=== PATIENT | male | born 1960 | race Two or more races ===

== ENCOUNTER → 2020-03-15 | Outpatient (CLI) | payer OTHER ==
[2020-03-15 07:56] LABS: Basophils # (auto) 0.1 10 ^3/uL (0-0.2); Basophils % (auto) 1.2 % (0.0-2.0); Eosinophils # (auto) 0.4 10 ^3/uL (0-0.8); Hematocrit 45.6 % (41.0-53.0); Hemoglobin 15.4 g/dL (13.5-17.5); Lymphocytes # (auto) 1.3 10 ^3/uL (0.4-5.4); Lymphocytes % (auto) 24.2 % (10.0-50.0); Mean Corpuscular Hemoglobin 29.5 pg (28.0-32.0); Mean Corpuscular Hgb Conc. 33.7 g/dL (32.0-36.0); Mean Corpuscular Volume 87.8 fL (80.0-100.0); Monocytes # (auto) 0.5 10 ^3/uL (0-1.3); Neutrophils # (auto) 3.2 10 ^3/uL (1.6-8.6); Neutrophils % (auto) 58.6 % (37.0-80.0); Nucleated Red Blood Cells % 0.1 %; Platelet Count (auto) 245 10^3/uL (140-450); Red Cell Distribution Width 13.3 % (11.8-14.3); White Blood Cell 5.4 10^3/uL (4.4-10.8)
[2020-03-15 07:57] LABS: Urine Bacteria NONE SEEN /hpf (None Seen); Urine Blood Negative /uL (Negative); Urine Mucus FEW (None Seen); Urine Specific Gravity 1.017 (1.001-1.035); Urine Sperm PRESENT /hpf (None Seen); Urine WBC 2 /hpf (0 - 3)
[2020-03-15 08:22] LABS: Potassium 3.9 mmol/L (3.5-5.1)
[2020-03-15 08:31] LABS: Albumin 4.3 g/dL (3.4-5.0); BUN/Creatinine Ratio 19.8; Bilirubin, Total 0.6 mg/dL (0.2-1.0); CRP High Sensitivity 0.1 mg/dL (< 0.3); Calcium 9.1 mg/dL (8.5-10.1); Total Protein 7.7 g/dL (6.4-8.2)
== END | disposition home or self-care (01) ==
LOC: LAB 07:13
PROVIDERS: ATTEND Internal Medicine
DX: Z12.11 Encounter for screening for malignant neoplasm of colon (principal); N40.0 Benign prostatic hyperplasia without lower urinary tract symptoms; M25.529 Pain in unspecified elbow; M25.551 Pain in right hip
CPT/HCPCS: 36415; 80053; 80061; 81001; 84153; 84154; 84403; 84550; 85025; 85652; 86038; 86141; 86431

== ENCOUNTER 2020-03-29 15:21 | Inpatient (IN) | payer OTHER ==
[~2020-03-29] VITALS: Ht 182.9 cm; Wt 79.9 kg
--- NOTE | 2020-03-29 11:50 | NUR ---
Lights out in pt's room; pt sleeping soundly.
--- NOTE | 2020-03-29 16:15 | NUR ---
Patient escorted to unit in stable condition. Denies any pain at this time.
--- NOTE | 2020-03-29 16:20 | NUR ---
Pageele Gil NP. Per Jeffery, he will be in the hospital shortly.
[2020-03-29 16:35] VITALS: BP 117/84
[2020-03-29 17:00] VITALS: BP 117/84
[2020-03-29] MEDS ORDERED: ACETAMINOPHEN 500 MG TAB PO PRN (17:00)
[2020-03-29] MEDS ORDERED: HYDROcodone-ACET 5/325MG TAB PO PRN (17:00)
[2020-03-29] MEDS ORDERED: NITROGLYCERIN 0.4 MG SL TAB SL PRN (17:00)
[2020-03-29] MEDS ORDERED: MORPHINE SULF INJ 2 MG/ML SYRINGE 1ML IV PRN ×2 (17:00)
[2020-03-29] MEDS ORDERED: ONDANSETRON HCL 4 MG/2 ML VIAL IV PRN (17:00)
[2020-03-29 18:03] LABS: Basophils # (auto) 0 10 ^3/uL (0-0.2); Basophils % (auto) 0.6 % (0.0-2.0); Eosinophils # (auto) 0.1 10 ^3/uL (0-0.8); Eosinophils % (auto) 1.5 % (0.0-7.0); Hematocrit 46.1 % (41.0-53.0); Hemoglobin 15.8 g/dL (13.5-17.5); Lymphocytes # (auto) 1.4 10 ^3/uL (0.4-5.4); Lymphocytes % (auto) 18.9 % (10.0-50.0); Mean Corpuscular Hemoglobin 29.5 pg (28.0-32.0); Mean Corpuscular Hgb Conc. 34.2 g/dL (32.0-36.0); Mean Corpuscular Volume 86.3 fL (80.0-100.0); Monocytes # (auto) 0.6 10 ^3/uL (0-1.3); Monocytes % (auto) 7.7 % (0.0-12.0); Neutrophils # (auto) 5.2 10 ^3/uL (1.6-8.6); Neutrophils % (auto) 71.3 % (37.0-80.0); Nucleated Red Blood Cells % 0.2 %; Platelet Count (auto) 335 10^3/uL (140-450); Red Blood Cells 5.34 10^6/uL (4.5-5.90); Red Cell Distribution Width 13.3 % (11.8-14.3); White Blood Cell 7.2 10^3/uL (4.4-10.8)
[2020-03-29 18:31] LABS: INR 1.01 (0.9-1.15); Partial Thromboplastin Time 24.8 sec (23.0-31.2)
--- NOTE | 2020-03-29 19:30 | NUR ---
Opening Shift Note Assumed care of patient, awake and alert and anxious as displayed by furrowed brow and restlessness. No S/S SOB or pain. Instructed on POC and to call for assist PRN; Pt VU but stated he'd wanted to go home, not come to hospital. RN will continue to monitor for changes Q1hr and PRN. Bed in low position; call light to pt's side. Oriented completely to nurse call light control.
[2020-03-29 19:38] LABS: Anion Gap 5 (5-15); Blood Urea Nitrogen 26 mg/dL (7-18); Calcium 8.8 mg/dL (8.5-10.1); Carbon Dioxide 26 mmol/L (21-32); Chloride 108 mmol/L (98-107); Glucose 101 mg/dL (74-106); Sodium 139 mmol/L (136-145)
[2020-03-29 19:43] LABS: BUN/Creatinine Ratio 22.4; GFR African American 83 mL/min; GFR Non-African American 68 mL/min
--- NOTE | 2020-03-29 21:45 | NUR ---
Pt c/o saline lock causing him discomfort and asked if he had to keep it. This RN explained that with his heart rhythm it is best to have it already in place; if an emergency occurs, it will be much more helpful than having to stick him at that time. Pt conceded to keep it.
[2020-03-29 22:00] VITALS: BP 132/88
[2020-03-30 06:00] VITALS: BP 132/87
--- NOTE | 2020-03-30 06:55 | NUR ---
Pt awake and expressing frustration that MDs are not here yet and that he still wants to go home. States he "barely" slept, though pt slept for approx past 7 hours.
--- NOTE | 2020-03-30 07:45 | NUR ---
Patient resting comfortably in bed with no complaint of pain at this time. Patient stable.
[2020-03-30 08:15] VITALS: BP 117/85
--- NOTE | 2020-03-30 08:15 | NUR ---
Patient awake, alert, oriented x4. NSR per complex director. Lungs clear; respiration even and unlabored. Patent 20 gauge peripheral IV in right forearm. Patient denies any pain at this time. Patient stable.
[2020-03-30 09:00] VITALS: BP 117/85
[2020-03-30] MEDS: FAMOTIDINE 20 MG TAB PO SCH (09:37)
[2020-03-30] MEDS: ASPirin-EC 81 mg tab PO SCH (09:37)
--- NOTE | 2020-03-30 09:37 | NUR ---
Scheduled medications given per order. Patient resting comfortably in bed; denies pain at this time. Patient stable.
[2020-03-30] MEDS ORDERED: ASPirin 81 mg TAB PO SCH (10:00)
--- NOTE | 2020-03-30 10:05 | NUR ---
Patient resting comfortably in bed with Dr. Waddell at bedside. Patient stable.
[2020-03-30 10:52] LABS: Urine WBC None Seen /hpf (0 - 3)
[2020-03-30 11:16] LABS: Urine Bacteria NONE SEEN /hpf (None Seen); Urine Blood Negative /uL (Negative); Urine Mucus FEW (None Seen); Urine Specific Gravity 1.015 (1.001-1.035)
--- NOTE | 2020-03-30 11:35 | NUR ---
Patient stable; resting comfortably in bed with no complaint of pain at this time.
[2020-03-30 13:00] VITALS: BP 121/81
--- NOTE | 2020-03-30 13:00 | NUR ---
Patient resting comfortably in bed with no complaint of pain. Patient stable at this time.
--- NOTE | 2020-03-30 16:00 | NUR ---
Patient stable at this time. Patient resting quietly in bed.
[2020-03-30 17:00] VITALS: BP 127/76
--- NOTE | 2020-03-30 17:20 | NUR ---
Patient resting quietly in bed with Dr. Beckman at bedside. Patient stable at this time.
--- NOTE | 2020-03-30 18:24 | NUR ---
Patient medicated for nausea and 5/10 back pain. Patient resting quietly in bed at this time.
--- NOTE | 2020-03-30 19:30 | NUR ---
Received report and care of pt from day shift RN. Pt awake and sitting up in bed. Pt c/o feeling as if he has learned nothing about 'what is wrong' with him. Able to [employer] with purpose and coordination. States he had a headache "that was just throbbing, but it has dropped down to a 3 now." Pt stated, "I don't know that I want any [pain med] now." This RN instructed him to call if he changes his mind. Pt VU and agreement with plan.
[2020-03-30 22:00] VITALS: BP 130/85
[2020-03-31 05:00] VITALS: BP 131/78
--- NOTE | 2020-03-31 07:40 | NUR ---
Opening Shift Note Assumed care of patient, awake and alert. A/O X 4. No S/S of distress/SOB or pain. Instructed on POC including awaiting a cardiology consult. Instructed to call for assist PRN. Patient verbalized understanding. Bed is in lowest position and the call light is within reach of the patient. Will continue to monitor for changes Q1hr and PRN.
[2020-03-31 08:30] VITALS: BP 131/78
[2020-03-31 08:49] VITALS: BP 131/79
[2020-03-31] MEDS: ASPirin-EC 81 mg tab PO SCH (09:48)
[2020-03-31] MEDS: FAMOTIDINE 20 MG TAB PO SCH (09:48)
--- NOTE | 2020-03-31 10:15 | NUR ---
Medication refused Pepcid refused by patient due to feelings of nausea. MD made aware.
--- NOTE | 2020-03-31 10:59 | NUR ---
Dr. Sierra at bedside Dr. Sierra at bedside discussing the POC with the patient. Paged cardiology to come see the patient. D/C planning is dependent on cardiology assessment and echo results. Will continue to monitor.
[2020-03-31 11:33] VITALS: BP 131/79
[2020-03-31 13:00] VITALS: BP 128/60
--- NOTE | 2020-03-31 14:29 | NUR ---
Discharged Discharge instructions given as ordered. Encouraged to keep appointment with follow primary doctor as instructed and make an appointment with cardiology. New prescriptions given. All questions and concerns addressed. Patient verbalized understanding. Medication reconciliation form completed and copy given to patient. IV removed with catheter intact, pressure dressing applied. Telemetry unit returned to ICU. Patient walked off the unit with all personal belongings. No distress noted at time of departure.
== END 2020-03-31 14:25 | disposition home or self-care (01) | DRG 303 ==
LOC: TELE-CENTR 16:04
PROVIDERS: ADMIT Nurse Practitioner Acute Care; ATTEND Internal Medicine
DX: I25.10 Atherosclerotic heart disease of native coronary artery without angina pectoris (principal); I48.0 Paroxysmal atrial fibrillation; N40.0 Benign prostatic hyperplasia without lower urinary tract symptoms; Z80.0 Family history of malignant neoplasm of digestive organs; Z80.8 Family history of malignant neoplasm of other organs or systems; Z82.49 Family history of ischemic heart disease and other diseases of the circulatory system
CPT/HCPCS: 36415; 71045; 80048; 81001; 83735; 84443; 84484; 85025; 85379; 85610; 85730; 93005; 93306; G0378; J2405

== ENCOUNTER → 2020-06-23 | Outpatient (CLI) | payer OTHER | END | disposition home or self-care (01) | LOC: XY 08:09 | PROVIDERS: ATTEND Internal Medicine | DX: I48.0 Paroxysmal atrial fibrillation (principal) | CPT/HCPCS: 78452; 93017; A9500 ==

== ENCOUNTER → 2020-07-25 | Outpatient (CLI) | payer OTHER | END | disposition home or self-care (01) | LOC: LAB 08:22 | PROVIDERS: ATTEND Internal Medicine | DX: R97.20 Elevated prostate specific antigen [PSA] (principal) | CPT/HCPCS: 84153; 84154 ==

== ENCOUNTER → 2020-09-19 | Outpatient (CLI) | payer OTHER ==
[~2020-09-19] MED LIST: ASPI81CH59 PO; GABA300C10 PO; LATA1POW XX; METO25TA93 PO; NAPR375T27 PO; TAM04C PO; ZAFI1TAB4 PO
[2020-09-19 12:31] LABS: Basophils # (auto) 0.1 10 ^3/uL (0-0.2); Basophils % (auto) 1.2 % (0.0-2.0); Eosinophils # (auto) 0.4 10 ^3/uL (0-0.8); Eosinophils % (auto) 6.6 % (0.0-7.0); Hematocrit 42.5 % (41.0-53.0); Hemoglobin 14.5 g/dL (13.5-17.5); Lymphocytes # (auto) 1.2 10 ^3/uL (0.4-5.4); Lymphocytes % (auto) 17.8 % (10.0-50.0); Mean Corpuscular Hemoglobin 30.4 pg (28.0-32.0); Mean Corpuscular Hgb Conc. 34.2 g/dL (32.0-36.0); Mean Corpuscular Volume 88.8 fL (80.0-100.0); Monocytes # (auto) 0.6 10 ^3/uL (0-1.3); Monocytes % (auto) 8.7 % (0.0-12.0); Neutrophils # (auto) 4.3 10 ^3/uL (1.6-8.6); Neutrophils % (auto) 65.7 % (37.0-80.0); Nucleated Red Blood Cells % 0.1 %; Platelet Count (auto) 273 10^3/uL (140-450); Red Blood Cells 4.78 10^6/uL (4.5-5.90); Red Cell Distribution Width 13.2 % (11.8-14.3); White Blood Cell 6.6 10^3/uL (4.4-10.8)
[2020-09-19 12:36] LABS: Urine Bacteria NONE SEEN /hpf (None Seen); Urine Blood Negative /uL (Negative); Urine WBC <1 /hpf (0 - 3)
[2020-09-19 12:54] LABS: Albumin 3.8 g/dL (3.4-5.0); Calcium 9.2 mg/dL (8.5-10.1)
[2020-09-19 12:58] LABS: INR 0.99 (0.9-1.15); Partial Thromboplastin Time 25.2 sec (23.0-31.2)
[2020-09-19 12:59] LABS: BUN/Creatinine Ratio 21.5; Bilirubin, Total 0.3 mg/dL (0.2-1.0); Total Protein 7.7 g/dL (6.4-8.2)
== END | disposition home or self-care (01) ==
LOC: LAB 11:59
PROVIDERS: ATTEND Urology
DX: Z01.812 Encounter for preprocedural laboratory examination (principal)
CPT/HCPCS: 36415; 80053; 81001; 85025; 85610; 85730

== ENCOUNTER → 2020-09-22 | Day surgery (SDC) | payer OTHER ==
[~2020-09-22] VITALS: Ht 182.9 cm; Wt 77.1 kg
[~2020-09-22] MED LIST changes: +CIPROFLOXACIN 400MG/200ML 200 ML IV ONE; +HYDROmorphone HCL 2 MG/ML VL IV PRN; +LABETALOL HCL 5 MG/ML 4ML SYRINGE IV PRN; +LATA0.0019 LEFTEYE; +MIDAZOLAM HCL 1MG/1ML-2 ML VIAL IV PRN; +MIDAZOLAM HCL 1MG/1ML-2 ML VIAL ONE; +MORPHINE SULFATE 4 MG/ML SYR/VIAL IV PRN; +ONDANSETRON HCL 4 MG/2 ML VIAL IV PRN; +ONDANSETRON HCL 4 MG/2 ML VIAL ONE; +PROPOFOL 10 MG/ML 20 ML IV ONE; +SODIUM CHLORIDE LOCK 10 ML ONE; +ePHEDrine SULFATE 50 MG/ML AMP IV PRN; +fentaNYL CITRATE 100 MCG/2 ML VL ONE
[2020-09-22 14:41] VITALS: BP 118/75
== END | disposition home or self-care (01) ==
LOC: SUR 08:48
PROVIDERS: ATTEND Urology
DX: R97.20 Elevated prostate specific antigen [PSA] (principal); I10 Essential (primary) hypertension; J45.909 Unspecified asthma, uncomplicated; M54.30 Sciatica, unspecified side; J44.9 Chronic obstructive pulmonary disease, unspecified; F41.9 Anxiety disorder, unspecified; G89.29 Other chronic pain; Z79.899 Other long term (current) drug therapy; Z98.890 Other specified postprocedural states; Z20.822 Contact with and (suspected) exposure to COVID-19; Z82.49 Family history of ischemic heart disease and other diseases of the circulatory system; Z80.8 Family history of malignant neoplasm of other organs or systems
CPT/HCPCS: 55700; J0744; J2250; J2405; J2704; J3010; U0003

== ENCOUNTER 2020-09-27 06:52 | Inpatient (IN) | payer OTHER ==
[~2020-09-27] VITALS: Ht 182.9 cm; Wt 86.1 kg
[~2020-09-27 06:52] MED LIST changes: -CIPROFLOXACIN 400MG/200ML 200 ML IV ONE; -HYDROmorphone HCL 2 MG/ML VL IV PRN; -LABETALOL HCL 5 MG/ML 4ML SYRINGE IV PRN; -LATA0.0019 LEFTEYE; -MIDAZOLAM HCL 1MG/1ML-2 ML VIAL IV PRN; -MIDAZOLAM HCL 1MG/1ML-2 ML VIAL ONE; -MORPHINE SULFATE 4 MG/ML SYR/VIAL IV PRN; -ONDANSETRON HCL 4 MG/2 ML VIAL IV PRN; -ONDANSETRON HCL 4 MG/2 ML VIAL ONE; -PROPOFOL 10 MG/ML 20 ML IV ONE; -SODIUM CHLORIDE LOCK 10 ML ONE; -ePHEDrine SULFATE 50 MG/ML AMP IV PRN; -fentaNYL CITRATE 100 MCG/2 ML VL ONE
[2020-09-27] MEDS ORDERED: SODIUM CHLORIDE 0.9% 1,000 ML IV ONE (07:15)
[2020-09-27 07:40] LABS: Basophils # (auto) 0 10 ^3/uL (0-0.2); Basophils % (auto) 0.5 % (0.0-2.0); Eosinophils # (auto) 0.2 10 ^3/uL (0-0.8); Eosinophils % (auto) 1.6 % (0.0-7.0); Hematocrit 38.6 % (41.0-53.0); Hemoglobin 13.3 g/dL (13.5-17.5); Lymphocytes # (auto) 0.7 10 ^3/uL (0.4-5.4); Lymphocytes % (auto) 7.3 % (10.0-50.0); Mean Corpuscular Hemoglobin 30.3 pg (28.0-32.0); Mean Corpuscular Hgb Conc. 34.4 g/dL (32.0-36.0); Monocytes # (auto) 0.4 10 ^3/uL (0-1.3); Monocytes % (auto) 4.1 % (0.0-12.0); Neutrophils # (auto) 8.6 10 ^3/uL (1.6-8.6); Neutrophils % (auto) 86.5 % (37.0-80.0); Nucleated Red Blood Cells % 0.1 %; Red Blood Cells 4.38 10^6/uL (4.5-5.90); Red Cell Distribution Width 12.9 % (11.8-14.3)
[2020-09-27 07:53] LABS: INR 1.04 (0.9-1.15); Partial Thromboplastin Time 24.8 sec (23.0-31.2)
[2020-09-27 08:13] LABS: Albumin 4.1 g/dL (3.4-5.0); Anion Gap 8 (5-15); Blood Urea Nitrogen 19 mg/dL (7-18); Calcium 8.7 mg/dL (8.5-10.1); Carbon Dioxide 25 mmol/L (21-32); Chloride 105 mmol/L (98-107); Glucose 111 mg/dL (74-106); Potassium 3.8 mmol/L (3.5-5.1); Sodium 138 mmol/L (136-145)
[2020-09-27 08:18] LABS: Alanine Aminotransferase 23 U/L (16-61); Alkaline Phosphatase 52 U/L (45-117); Aspartate Aminotransferase 23 U/L (15-37); BUN/Creatinine Ratio 20.9; Bilirubin, Total 0.7 mg/dL (0.2-1.0); GFR African American 109 mL/min; GFR Non-African American 90 mL/min; Total Protein 7.6 g/dL (6.4-8.2)
[2020-09-27 08:26] LABS: Urine Bacteria NONE SEEN /hpf (None Seen); Urine Blood 3+ /uL (Negative); Urine Specific Gravity > 1.050 (1.001-1.035); Urine WBC 376 /hpf (0 - 3)
[2020-09-27] MEDS ORDERED: cefTRIAXone 1GM/50ML D5W 50 ML IV ONE (09:00)
[2020-09-27] MEDS ORDERED: HYDROcodone-ACET 5/325MG TAB PO PRN (11:30)
[2020-09-27] MEDS ORDERED: NITROGLYCERIN 0.4 MG SL TAB SL PRN (11:30)
[2020-09-27] MEDS ORDERED: MORPHINE SULFATE INJECTION 2 MG/ML SYRG IV PRN (11:30)
[2020-09-27] MEDS: SODIUM CHLORIDE 0.9% 1,000 ML IV SCH (11:36)
[2020-09-27] MEDS ORDERED: LATA0.0019 LEFTEYE (12:10)
[2020-09-27] MEDS ORDERED: LIDOCAINE HCL 2% TOP JELLY 5ML TOP ONE ×2 (13:25→13:30)
[2020-09-27 15:47] VITALS: BP 132/87
[2020-09-27 16:31] VITALS: BP 132/90
[2020-09-27] MEDS: ACETAMINOPHEN 500 MG TAB PO PRN (17:15)
[2020-09-27] MEDS: BELLADONNA ALKAL/OPIUM (16.2/30MG) RECT SUPP PR SCH (18:45)
[2020-09-27 20:00] VITALS: BP 116/76
[2020-09-27] MEDS: GABAPENTIN 300 MG CAP PO SCH (21:39)
[2020-09-27] MEDS: LATANOPROST 0.005 % OPTH(EYE) SOL 2.5ML LEFTEYE SCH (21:39)
[2020-09-27 22:37] VITALS: BP 116/76
[2020-09-28] MEDS: ACETAMINOPHEN 500 MG TAB PO PRN ×2 (01:24→23:06)
[2020-09-28] MEDS: MORPHINE SULFATE INJECTION 2 MG/ML SYRG IV PRN ×3 (01:36→19:10)
[2020-09-28] MEDS: SODIUM CHLORIDE 0.9% 1,000 ML IV SCH ×3 (03:01→17:30)
[2020-09-28 05:00] VITALS: BP 103/58
[2020-09-28 07:11] LABS: Basophils # (auto) 0 10 ^3/uL (0-0.2); Basophils % (auto) 0.7 % (0.0-2.0); Eosinophils # (auto) 0.3 10 ^3/uL (0-0.8); Eosinophils % (auto) 4.8 % (0.0-7.0); Hematocrit 27.6 % (41.0-53.0); Hemoglobin 9.8 g/dL (13.5-17.5); Lymphocytes # (auto) 1.1 10 ^3/uL (0.4-5.4); Lymphocytes % (auto) 16.5 % (10.0-50.0); Mean Corpuscular Hemoglobin 31.1 pg (28.0-32.0); Mean Corpuscular Hgb Conc. 35.6 g/dL (32.0-36.0); Mean Corpuscular Volume 87.3 fL (80.0-100.0); Monocytes # (auto) 0.5 10 ^3/uL (0-1.3); Monocytes % (auto) 7.8 % (0.0-12.0); Neutrophils # (auto) 4.9 10 ^3/uL (1.6-8.6); Neutrophils % (auto) 70.2 % (37.0-80.0); Nucleated Red Blood Cells % 0.1 %; Red Blood Cells 3.16 10^6/uL (4.5-5.90); Red Cell Distribution Width 12.8 % (11.8-14.3); White Blood Cell 6.9 10^3/uL (4.4-10.8)
[2020-09-28 07:19] LABS: Calcium 7.4 mg/dL (8.5-10.1); Potassium 3.4 mmol/L (3.5-5.1)
[2020-09-28 07:22] LABS: BUN/Creatinine Ratio 20.5
[2020-09-28 08:15] VITALS: BP 131/81
[2020-09-28 09:00] VITALS: BP 131/81
[2020-09-28] MEDS: cefTRIAXone 1GM/50ML D5W 50 ML IV SCH (09:27)
[2020-09-28] MEDS: METOPROLOL SUCCINATE XL 50 MG TAB PO SCH (10:00)
[2020-09-28] MEDS ORDERED: PATIENTS OWN MEDICATION (Metoprolol Succinate (Metoprolol Succinate Er) 1 TAB) PO SCH (10:00)
[2020-09-28] MEDS: FAMOTIDINE 20 MG TAB PO SCH (10:00)
[2020-09-28] MEDS: BELLADONNA ALKAL/OPIUM (16.2/30MG) RECT SUPP PR SCH ×2 (10:00→22:02)
[2020-09-28] MEDS: ZAFIRLUKAST 10 MG PO SCH (10:00)
[2020-09-28] MEDS: GABAPENTIN 300 MG CAP PO SCH ×2 (10:00→22:01)
[2020-09-28] MEDS ORDERED: KETOROLAC TROMETH 30 MG/ML 1ML VIAL IV ONE (10:15)
[2020-09-28] MEDS ORDERED: HYDROmorphone HCL 2 MG/ML VL IV STA (10:15)
[2020-09-28] MEDS ORDERED: HYDROmorphone HCL 2 MG/ML VL ONE ×2 (10:21→10:59)
[2020-09-28] MEDS ORDERED: LIDOCAINE 2% JELLY 11ml (GLYDO) ONE ×2 (10:40→16:07)
[2020-09-28] MEDS ORDERED: HYDROmorphone HCL 2 MG/ML VL IV ONE (11:00)
[2020-09-28] MEDS ORDERED: SUCCINYLCHOLINE CHLORIDE 20 MG/ML 10ML VIAL IV ONE (12:48)
[2020-09-28] MEDS ORDERED: ROCURONIUM 10MG/ML 10ML VIAL IV ONE (12:48)
[2020-09-28 12:56] VITALS: BP 108/67
[2020-09-28] MEDS ORDERED: CIPROFLOXACIN 400MG/200ML 200 ML IV ONE (14:51)
[2020-09-28] MEDS ORDERED: MIDAZOLAM HCL 2MG/2ML 2ml VIAL (1mg/ml) ONE (16:18)
[2020-09-28] MEDS ORDERED: fentaNYL CITRATE 100 MCG/2 ML VL ONE (16:18)
[2020-09-28] MEDS ORDERED: PROPOFOL 10 MG/ML 20 ML IV ONE (16:19)
[2020-09-28] MEDS ORDERED: ONDANSETRON HCL 4 MG/2 ML VIAL ONE (16:19)
[2020-09-28] MEDS ORDERED: LIDOCAINE 2% (LOCAL ANESTH.) PF 5ml SDV ONE (16:19)
[2020-09-28] MEDS ORDERED: PHENYLEPHRINE HCL 10 MG/ML VL ONE (17:46)
[2020-09-28] MEDS ORDERED: ONDANSETRON HCL 4 MG/2 ML VIAL IV PRN (18:15)
[2020-09-28] MEDS: HYDROmorphone HCL 2 MG/ML VL IV PRN ×3 (18:38→18:58)
[2020-09-28] MEDS ORDERED: MORPHINE SULFATE 4 MG/ML SYR/VIAL ONE (19:10)
[2020-09-28 20:00] VITALS: BP 117/74
[2020-09-28 21:18] LABS: Basophils # (auto) 0.1 10 ^3/uL (0-0.2); Basophils % (auto) 0.5 % (0.0-2.0); Eosinophils # (auto) 0 10 ^3/uL (0-0.8); Eosinophils % (auto) 0.2 % (0.0-7.0); Hemoglobin 9.9 g/dL (13.5-17.5); Lymphocytes % (auto) 5.4 % (10.0-50.0); Mean Corpuscular Hemoglobin 29.4 pg (28.0-32.0); Mean Corpuscular Volume 88.9 fL (80.0-100.0); Monocytes # (auto) 1.2 10 ^3/uL (0-1.3); Monocytes % (auto) 6.7 % (0.0-12.0); Neutrophils # (auto) 16.1 10 ^3/uL (1.6-8.6); Neutrophils % (auto) 87.2 % (37.0-80.0); Nucleated Red Blood Cells % 0.1 %; Red Blood Cells 3.38 10^6/uL (4.5-5.90); Red Cell Distribution Width 13.4 % (11.8-14.3); White Blood Cell 18.5 10^3/uL (4.4-10.8)
[2020-09-28 21:47] VITALS: BP 117/74
[2020-09-28] MEDS: LATANOPROST 0.005 % OPTH(EYE) SOL 2.5ML LEFTEYE SCH (22:01)
[2020-09-29] MEDS ORDERED: SIMETHICONE 80 MG CHEWABLE TABLET PO ONE (03:15)
[2020-09-29] MEDS: MORPHINE SULFATE INJECTION 2 MG/ML SYRG IV PRN (03:56)
[2020-09-29] MEDS: SODIUM CHLORIDE 0.9% 1,000 ML IV SCH ×2 (03:58→16:37)
[2020-09-29 05:20] VITALS: BP 136/57
[2020-09-29 06:42] LABS: Basophils # (auto) 0 10 ^3/uL (0-0.2); Basophils % (auto) 0.2 % (0.0-2.0); Eosinophils # (auto) 0 10 ^3/uL (0-0.8); Eosinophils % (auto) 0.3 % (0.0-7.0); Hematocrit 27.4 % (41.0-53.0); Hemoglobin 9.4 g/dL (13.5-17.5); Lymphocytes % (auto) 6.3 % (10.0-50.0); Mean Corpuscular Hgb Conc. 34.3 g/dL (32.0-36.0); Mean Corpuscular Volume 87.5 fL (80.0-100.0); Monocytes # (auto) 0.9 10 ^3/uL (0-1.3); Monocytes % (auto) 6.1 % (0.0-12.0); Neutrophils # (auto) 13.3 10 ^3/uL (1.6-8.6); Neutrophils % (auto) 87.1 % (37.0-80.0); Red Blood Cells 3.13 10^6/uL (4.5-5.90); Red Cell Distribution Width 12.7 % (11.8-14.3); White Blood Cell 15.3 10^3/uL (4.4-10.8)
[2020-09-29 06:57] LABS: Albumin 2.9 g/dL (3.4-5.0); Potassium 3.7 mmol/L (3.5-5.1)
[2020-09-29 07:02] LABS: BUN/Creatinine Ratio 28.9; Bilirubin, Total 0.9 mg/dL (0.2-1.0); Total Protein 5.7 g/dL (6.4-8.2)
[2020-09-29] MEDS: cefTRIAXone 1GM/50ML D5W 50 ML IV SCH (08:23)
[2020-09-29 09:00] VITALS: BP 133/77
[2020-09-29] MEDS ORDERED: ONDANSETRON HCL 4 MG/2 ML VIAL IV PRN (09:30)
[2020-09-29] MEDS: ZAFIRLUKAST 10 MG PO SCH (10:00)
[2020-09-29] MEDS: KETOROLAC TROMETH 30 MG/ML 1ML VIAL IV PRN ×2 (10:05→17:56)
[2020-09-29] MEDS: METOPROLOL SUCCINATE XL 50 MG TAB PO SCH (10:06)
[2020-09-29] MEDS: BELLADONNA ALKAL/OPIUM (16.2/30MG) RECT SUPP PR SCH ×2 (10:06→22:00)
[2020-09-29] MEDS: GABAPENTIN 300 MG CAP PO SCH ×2 (10:06→21:50)
[2020-09-29] MEDS: FAMOTIDINE 20 MG TAB PO SCH (10:06)
[2020-09-29 13:00] VITALS: BP 114/75
[2020-09-29 16:56] VITALS: BP 109/68
[2020-09-29] MEDS ORDERED: LACTULOSE 20Gm/30ML SOLN PO PRN (19:45)
[2020-09-29 22:00] VITALS: BP 119/70
[2020-09-29] MEDS: LATANOPROST 0.005 % OPTH(EYE) SOL 2.5ML LEFTEYE SCH (22:00)
[2020-09-30] MEDS: KETOROLAC TROMETH 30 MG/ML 1ML VIAL IV PRN (00:28)
[2020-09-30] MEDS: SODIUM CHLORIDE 0.9% 1,000 ML IV SCH (01:28)
[2020-09-30 05:16] VITALS: BP 117/70
[2020-09-30 07:04] LABS: Eosinophils # (auto) 0.6 10 ^3/uL (0-0.8); Hemoglobin 7.7 g/dL (13.5-17.5); Neutrophils # (auto) 9.2 10 ^3/uL (1.6-8.6); Red Cell Distribution Width 12.9 % (11.8-14.3); White Blood Cell 11.6 10^3/uL (4.4-10.8)
[2020-09-30 07:07] LABS: Basophils # (auto) 0 10 ^3/uL (0-0.2); Basophils % (auto) 0.2 % (0.0-2.0); Eosinophils % (auto) 5.2 % (0.0-7.0); Hematocrit 21.9 % (41.0-53.0); Lymphocytes # (auto) 0.9 10 ^3/uL (0.4-5.4); Lymphocytes % (auto) 7.4 % (10.0-50.0); Mean Corpuscular Hemoglobin 30.6 pg (28.0-32.0); Mean Corpuscular Hgb Conc. 35.3 g/dL (32.0-36.0); Mean Corpuscular Volume 86.8 fL (80.0-100.0); Monocytes # (auto) 0.9 10 ^3/uL (0-1.3); Neutrophils % (auto) 79.2 % (37.0-80.0); Red Blood Cells 2.52 10^6/uL (4.5-5.90)
[2020-09-30 07:09] LABS: Albumin 2.6 g/dL (3.4-5.0); Calcium 7.2 mg/dL (8.5-10.1); Potassium 3.5 mmol/L (3.5-5.1)
[2020-09-30 07:16] LABS: BUN/Creatinine Ratio 13.4; Bilirubin, Total 0.6 mg/dL (0.2-1.0); Total Protein 5.3 g/dL (6.4-8.2)
[2020-09-30 09:01] VITALS: BP 123/68
[2020-09-30] MEDS: cefTRIAXone 1GM/50ML D5W 50 ML IV SCH (09:05)
[2020-09-30] MEDS: FAMOTIDINE 20 MG TAB PO SCH (09:50)
[2020-09-30] MEDS: ZAFIRLUKAST 10 MG PO SCH (09:50)
[2020-09-30] MEDS: GABAPENTIN 300 MG CAP PO SCH ×2 (09:51→21:25)
[2020-09-30] MEDS: METOPROLOL SUCCINATE XL 50 MG TAB PO SCH (09:51)
[2020-09-30] MEDS: BELLADONNA ALKAL/OPIUM (16.2/30MG) RECT SUPP PR SCH ×2 (10:00→21:25)
[2020-09-30] MEDS ORDERED: TAMSULOSIN HYDROCHLORIDE 0.4 MG CAP PO ONE (11:15)
[2020-09-30 13:00] VITALS: BP 116/72
[2020-09-30 17:00] VITALS: BP 107/67
[2020-09-30] MEDS ORDERED: TAMSULOSIN HYDROCHLORIDE 0.4 MG CAP PO SCH (18:00)
[2020-09-30] MEDS: LATANOPROST 0.005 % OPTH(EYE) SOL 2.5ML LEFTEYE SCH (21:25)
[2020-09-30 22:00] VITALS: BP 111/74
[2020-10-01 05:21] LABS: Basophils # (auto) 0 10 ^3/uL (0-0.2); Eosinophils # (auto) 0.3 10 ^3/uL (0-0.8); Hemoglobin 8.1 g/dL (13.5-17.5); Monocytes # (auto) 0.9 10 ^3/uL (0-1.3); Neutrophils % (auto) 71.9 % (37.0-80.0); Nucleated Red Blood Cells % 0.1 %; White Blood Cell 9.4 10^3/uL (4.4-10.8)
[2020-10-01 05:22] LABS: Basophils % (auto) 0.4 % (0.0-2.0); Eosinophils % (auto) 3.2 % (0.0-7.0); Hematocrit 22.8 % (41.0-53.0); Lymphocytes # (auto) 1.4 10 ^3/uL (0.4-5.4); Lymphocytes % (auto) 15.2 % (10.0-50.0); Mean Corpuscular Hemoglobin 30.6 pg (28.0-32.0); Mean Corpuscular Hgb Conc. 35.5 g/dL (32.0-36.0); Mean Corpuscular Volume 86.1 fL (80.0-100.0); Monocytes % (auto) 9.3 % (0.0-12.0); Neutrophils # (auto) 6.7 10 ^3/uL (1.6-8.6); Red Blood Cells 2.65 10^6/uL (4.5-5.90); Red Cell Distribution Width 13.2 % (11.8-14.3)
[2020-10-01 05:25] VITALS: BP 107/67
[2020-10-01 05:38] LABS: Albumin 2.8 g/dL (3.4-5.0); Calcium 7.7 mg/dL (8.5-10.1); Potassium 3.5 mmol/L (3.5-5.1)
[2020-10-01 05:43] LABS: BUN/Creatinine Ratio 8.9; Bilirubin, Total 0.5 mg/dL (0.2-1.0)
[2020-10-01 09:00] VITALS: BP 112/74
[2020-10-01] MEDS: cefTRIAXone 1GM/50ML D5W 50 ML IV SCH (09:57)
[2020-10-01 10:22] VITALS: BP 107/67
[2020-10-01 13:00] VITALS: BP 111/67
[2021-02-06] MEDS ORDERED: FINA5TAB4 PO (15:54)
== END 2020-10-01 12:37 | disposition home or self-care (01) | DRG 713 ==
LOC: ER 06:52 → TELE 11:22 → TELE-EAST 14:15
PROVIDERS: ADMIT Nurse Practitioner Acute Care; ATTEND Family Medicine
PROC: 0TCB8ZZ Extirpation of Matter from Bladder, Via Natural or Artificial Opening Endoscopic (ICD-10-PCS; 2020-09-28)
PROC: 0V508ZZ Destruction of Prostate, Via Natural or Artificial Opening Endoscopic (ICD-10-PCS; principal; 2020-09-28 16:14)
DX: N40.1 Benign prostatic hyperplasia with lower urinary tract symptoms (principal); D62 Acute posthemorrhagic anemia; N13.8 Other obstructive and reflux uropathy; N39.0 Urinary tract infection, site not specified; N17.9 Acute kidney failure, unspecified; E87.1 Hypo-osmolality and hyponatremia; Z20.822 Contact with and (suspected) exposure to COVID-19; I10 Essential (primary) hypertension; R31.0 Gross hematuria; I48.0 Paroxysmal atrial fibrillation; J45.909 Unspecified asthma, uncomplicated; R33.8 Other retention of urine; N32.89 Other specified disorders of bladder; Z79.82 Long term (current) use of aspirin; Z80.8 Family history of malignant neoplasm of other organs or systems; Z82.49 Family history of ischemic heart disease and other diseases of the circulatory system; Z85.819 Personal history of malignant neoplasm of unspecified site of lip, oral cavity, and pharynx; Z87.891 Personal history of nicotine dependence; Z79.899 Other long term (current) drug therapy
CPT/HCPCS: 36415; 51702; 71045; 74176; 80048; 80053; 81001; 84484; 85025; 85610; 85730; 86850; 86900; 86901; 86920; 87086; 87426; 93005; 96361; 96365; G0378; J0330; J0696; J1885; J2001; J2250; J2405; J2704

== ENCOUNTER → 2020-10-21 | Outpatient (CLI) | payer OTHER ==
[~2020-10-21] MED LIST changes: +LATA0.0019 LEFTEYE; -LATA1POW XX
[2020-10-21 15:05] LABS: Basophils # (auto) 0.1 10 ^3/uL (0-0.2); Basophils % (auto) 2.1 % (0.0-2.0); Eosinophils # (auto) 0.4 10 ^3/uL (0-0.8); Eosinophils % (auto) 8.6 % (0.0-7.0); Hematocrit 30.8 % (41.0-53.0); Hemoglobin 10.5 g/dL (13.5-17.5); Lymphocytes # (auto) 1.1 10 ^3/uL (0.4-5.4); Lymphocytes % (auto) 23.7 % (10.0-50.0); Mean Corpuscular Hemoglobin 29.6 pg (28.0-32.0); Mean Corpuscular Hgb Conc. 34.2 g/dL (32.0-36.0); Mean Corpuscular Volume 86.4 fL (80.0-100.0); Monocytes # (auto) 0.5 10 ^3/uL (0-1.3); Monocytes % (auto) 9.7 % (0.0-12.0); Neutrophils # (auto) 2.7 10 ^3/uL (1.6-8.6); Neutrophils % (auto) 55.9 % (37.0-80.0); Platelet Count (auto) 348 10^3/uL (140-450); Red Blood Cells 3.56 10^6/uL (4.5-5.90); Red Cell Distribution Width 13.8 % (11.8-14.3); White Blood Cell 4.8 10^3/uL (4.4-10.8)
[2020-10-21 15:39] LABS: Albumin 3.7 g/dL (3.4-5.0); BUN/Creatinine Ratio 18.5; Calcium 8.8 mg/dL (8.5-10.1); Potassium 3.9 mmol/L (3.5-5.1)
[2020-10-21 15:42] LABS: Bilirubin, Total 0.2 mg/dL (0.2-1.0); Total Protein 7.3 g/dL (6.4-8.2)
== END | disposition home or self-care (01) ==
LOC: LAB 14:51
PROVIDERS: ATTEND Internal Medicine
DX: R10.12 Left upper quadrant pain (principal)
CPT/HCPCS: 36415; 80053; 82150; 83690; 85025

== ENCOUNTER → 2020-11-08 | Outpatient (CLI) | payer OTHER | END | disposition home or self-care (01) | LOC: LAB 08:30 | PROVIDERS: ATTEND Internal Medicine | DX: R10.2 Pelvic and perineal pain (principal) | CPT/HCPCS: 36415; 82565; 84520 ==

== ENCOUNTER → 2020-12-07 | Outpatient (CLI) | payer OTHER ==
[2020-12-07 08:20] LABS: Basophils # (auto) 0.1 10 ^3/uL (0-0.2); Basophils % (auto) 1.5 % (0.0-2.0); Eosinophils # (auto) 0.4 10 ^3/uL (0-0.8); Eosinophils % (auto) 9.5 % (0.0-7.0); Hemoglobin 12.6 g/dL (13.5-17.5); Lymphocytes # (auto) 1.2 10 ^3/uL (0.4-5.4); Lymphocytes % (auto) 30.8 % (10.0-50.0); Mean Corpuscular Hemoglobin 27.4 pg (28.0-32.0); Mean Corpuscular Hgb Conc. 33.2 g/dL (32.0-36.0); Mean Corpuscular Volume 82.5 fL (80.0-100.0); Monocytes # (auto) 0.4 10 ^3/uL (0-1.3); Monocytes % (auto) 10.4 % (0.0-12.0); Neutrophils # (auto) 1.9 10 ^3/uL (1.6-8.6); Neutrophils % (auto) 47.8 % (37.0-80.0); Red Cell Distribution Width 15.8 % (11.8-14.3)
[2020-12-07 08:38] LABS: Urine Bacteria NONE SEEN /hpf (None Seen); Urine Blood Negative /uL (Negative); Urine Specific Gravity 1.013 (1.001-1.035); Urine Sperm PRESENT /hpf (None Seen); Urine WBC 17 /hpf (0 - 3)
== END | disposition home or self-care (01) ==
LOC: LAB 07:45
PROVIDERS: ATTEND Internal Medicine
DX: R97.20 Elevated prostate specific antigen [PSA] (principal); D64.9 Anemia, unspecified; R31.0 Gross hematuria
CPT/HCPCS: 36415; 81001; 84153; 85025

== ENCOUNTER 2021-02-08 06:08 | Day surgery (SDC) | payer OTHER ==
[2021-02-06 10:29] LABS: Basophils # (auto) 0.1 10 ^3/uL (0-0.2); Basophils % (auto) 1.4 % (0.0-2.0); Eosinophils # (auto) 0.3 10 ^3/uL (0-0.8); Eosinophils % (auto) 5.6 % (0.0-7.0); Hematocrit 42.8 % (41.0-53.0); Hemoglobin 14.4 g/dL (13.5-17.5); Lymphocytes # (auto) 1.1 10 ^3/uL (0.4-5.4); Lymphocytes % (auto) 22.2 % (10.0-50.0); Mean Corpuscular Hemoglobin 27.4 pg (28.0-32.0); Mean Corpuscular Hgb Conc. 33.6 g/dL (32.0-36.0); Mean Corpuscular Volume 81.5 fL (80.0-100.0); Monocytes # (auto) 0.4 10 ^3/uL (0-1.3); Monocytes % (auto) 8.6 % (0.0-12.0); Neutrophils # (auto) 3.2 10 ^3/uL (1.6-8.6); Neutrophils % (auto) 62.2 % (37.0-80.0); Nucleated Red Blood Cells % 0.1 %; Red Blood Cells 5.25 10^6/uL (4.5-5.90); Red Cell Distribution Width 18.3 % (11.8-14.3); White Blood Cell 5.1 10^3/uL (4.4-10.8)
[2021-02-06 10:35] LABS: Urine Bacteria NONE SEEN /hpf (None Seen); Urine Blood Negative /uL (Negative); Urine Specific Gravity 1.019 (1.001-1.035); Urine WBC 1 /hpf (0 - 3)
[2021-02-06 10:53] LABS: Albumin 3.6 g/dL (3.4-5.0); Calcium 8.6 mg/dL (8.5-10.1); Potassium 4.1 mmol/L (3.5-5.1)
[2021-02-06 10:55] LABS: BUN/Creatinine Ratio 19.2; Bilirubin, Total 0.5 mg/dL (0.2-1.0); Total Protein 7.5 g/dL (6.4-8.2)
[~2021-02-08] VITALS: Ht 182.9 cm; Wt 79.4 kg
[~2021-02-08 06:08] MED LIST changes: +FINA5TAB4 PO; -GABA300C10 PO; -NAPR375T27 PO
[2021-02-08] MEDS ORDERED: ceFAZolin 1GM/50ML 100 ML IV ONE (07:18)
[2021-02-08] MEDS ORDERED: MIDAZOLAM HCL 2MG/2ML 2ml VIAL (1mg/ml) ONE (07:41)
[2021-02-08] MEDS ORDERED: fentaNYL CITRATE 100 MCG/2 ML VL ONE (07:41)
[2021-02-08] MEDS ORDERED: MEPERIDINE HCL (50 MG/ML) 1 ML VIAL ONE (07:41)
[2021-02-08] MEDS ORDERED: BUPIVACAINE W/ EPINEPH 0.25% INJ 50ML MDV ONE (07:46)
[2021-02-08] MEDS ORDERED: DexAMETHasone SOD PHOS 10MG/1ML VIAL INJ ONE (08:16)
[2021-02-08] MEDS ORDERED: PROPOFOL 10 MG/ML 20 ML IV ONE (08:16)
[2021-02-08] MEDS ORDERED: LABETALOL HCL 5 MG/ML 4ML SYRINGE IV PRN (08:30)
[2021-02-08] MEDS ORDERED: HYDROmorphone HCL 2 MG/ML VL IV PRN (08:30)
[2021-02-08] MEDS ORDERED: MORPHINE SULFATE 4 MG/ML SYR/VIAL IV PRN (08:30)
[2021-02-08] MEDS ORDERED: hydrALAZINE HCL 20 MG/ML VL IV PRN (08:30)
[2021-02-08] MEDS ORDERED: ONDANSETRON HCL 4 MG/2 ML VIAL IV PRN (08:30)
[2021-02-08] MEDS ORDERED: ePHEDrine SULFATE 50 MG/ML AMP IV PRN (08:30)
[2021-02-08] MEDS ORDERED: MIDAZOLAM HCL 2MG/2ML 2ml VIAL (1mg/ml) IV PRN (08:30)
[2021-02-08 10:25] VITALS: BP 112/68
== END 2021-02-08 10:30 | disposition home or self-care (01) ==
LOC: SUR 06:08
PROVIDERS: ATTEND Surgery
DX: K42.9 Umbilical hernia without obstruction or gangrene (principal); I10 Essential (primary) hypertension; J44.9 Chronic obstructive pulmonary disease, unspecified; Z98.890 Other specified postprocedural states; Z79.899 Other long term (current) drug therapy; Z20.822 Contact with and (suspected) exposure to COVID-19
CPT/HCPCS: 36415; 49585; 80053; 81001; 85025; J0690; J1100; J2175; J2250; J2704; J3010; Q4140; U0003

== ENCOUNTER → 2021-09-13 | Outpatient (CLI) | payer OTHER ==
[2021-09-13 09:21] LABS: Cholesterol 182 mg/dL (< 200); HDL Cholesterol 45 mg/dL (40-59); LDL Cholesterol 118 mg/dL (< 100); Triglycerides 127 mg/dL (< 150)
== END | disposition home or self-care (01) ==
LOC: LAB 08:07
PROVIDERS: ATTEND Internal Medicine
DX: E78.5 Hyperlipidemia, unspecified (principal)
CPT/HCPCS: 36415; 80061

== ENCOUNTER → 2021-10-05 | Outpatient (CLI) | payer OTHER | END | disposition home or self-care (01) | LOC: LAB 08:17 | PROVIDERS: ATTEND Internal Medicine | DX: N40.0 Benign prostatic hyperplasia without lower urinary tract symptoms (principal) | CPT/HCPCS: 84153 ==

== ENCOUNTER → 2022-01-04 | Outpatient (CLI) | payer OTHER ==
[2022-01-04 08:17] LABS: Folate (Folic Acid) 13.9 ng/mL (5.38-24)
[2022-01-05 06:06] LABS: RPR Non Reactive (Non Reactive)
== END | disposition home or self-care (01) ==
LOC: LAB 07:02
PROVIDERS: ATTEND Internal Medicine
DX: R10.13 Epigastric pain (principal)
CPT/HCPCS: 36415; 82607; 82746; 84443; 86592

== ENCOUNTER → 2022-04-02 | Outpatient (CLI) | payer OTHER ==
[2022-04-02 07:40] LABS: Basophils # (auto) 0.1 10 ^3/uL (0-0.2); Basophils % (auto) 1.4 % (0.0-2.0); Eosinophils # (auto) 0.6 10 ^3/uL (0-0.8); Eosinophils % (auto) 10.8 % (0.0-7.0); Hematocrit 42.7 % (41.0-53.0); Hemoglobin 14.9 g/dL (13.5-17.5); Lymphocytes # (auto) 1.6 10 ^3/uL (0.4-5.4); Lymphocytes % (auto) 28.8 % (10.0-50.0); Mean Corpuscular Hemoglobin 29.9 pg (28.0-32.0); Mean Corpuscular Hgb Conc. 34.9 g/dL (32.0-36.0); Mean Corpuscular Volume 85.6 fL (80.0-100.0); Monocytes # (auto) 0.5 10 ^3/uL (0-1.3); Monocytes % (auto) 9.6 % (0.0-12.0); Neutrophils # (auto) 2.7 10 ^3/uL (1.6-8.6); Neutrophils % (auto) 49.4 % (37.0-80.0); Red Blood Cells 4.99 10^6/uL (4.5-5.90); Red Cell Distribution Width 13.1 % (11.8-14.3); White Blood Cell 5.5 10^3/uL (4.4-10.8)
[2022-04-02 08:25] LABS: Albumin 3.7 g/dL (3.4-5.0); BUN/Creatinine Ratio 19.4; Calcium 9.1 mg/dL (8.5-10.1); Potassium 4.1 mmol/L (3.5-5.1); Total Protein 7.4 g/dL (6.4-8.2)
[2022-04-02 08:29] LABS: Bilirubin, Total 0.8 mg/dL (0.2-1.0)
== END | disposition home or self-care (01) ==
LOC: LAB 06:59
PROVIDERS: ATTEND Internal Medicine
DX: Z12.11 Encounter for screening for malignant neoplasm of colon (principal); I10 Essential (primary) hypertension; I48.0 Paroxysmal atrial fibrillation
CPT/HCPCS: 36415; 80053; 80061; 85025

== ENCOUNTER → 2022-09-10 | Outpatient (CLI) | payer OTHER ==
[2022-09-10 12:30] LABS: Urine Bacteria NONE SEEN /hpf (None Seen); Urine Blood Negative /uL (Negative); Urine Specific Gravity 1.009 (1.001-1.035); Urine WBC <1 /hpf (0 - 3)
== END | disposition home or self-care (01) ==
LOC: LAB 10:49
PROVIDERS: ATTEND Internal Medicine
DX: N40.0 Benign prostatic hyperplasia without lower urinary tract symptoms (principal); R31.9 Hematuria, unspecified
CPT/HCPCS: 81001; 84153

== ENCOUNTER → 2022-12-03 | Outpatient (CLI) | payer OTHER ==
[~2022-12-03] MED LIST changes: -LATA0.0019 LEFTEYE; +LATA0.008 LEFTEYE; -TAM04C PO; +TAMS-35 PO
[2022-12-03 07:45] LABS: Cholesterol 173 mg/dL (< 200); HDL Cholesterol 50 mg/dL (40-59); LDL Cholesterol 108 mg/dL (< 100); Triglycerides 86 mg/dL (< 150)
== END | disposition home or self-care (01) ==
LOC: LAB 06:30
PROVIDERS: ATTEND Internal Medicine
DX: E78.5 Hyperlipidemia, unspecified (principal)
CPT/HCPCS: 36415; 80061

== ENCOUNTER → 2023-01-02 | Outpatient (CLI) | payer OTHER | END | disposition home or self-care (01) | LOC: LAB 06:29 | PROVIDERS: ATTEND Internal Medicine | DX: R22.1 Localized swelling, mass and lump, neck (principal) | CPT/HCPCS: 36415; 82565; 84520 ==

== ENCOUNTER → 2023-01-31 | Outpatient (CLI) | payer OTHER ==
[2023-01-31 07:45] LABS: Basophils # (auto) 0.1 10 ^3/uL (0-0.2); Basophils % (auto) 1.1 % (0.0-2.0); Eosinophils # (auto) 0.4 10 ^3/uL (0-0.8); Eosinophils % (auto) 8.5 % (0.0-7.0); Hematocrit 41.4 % (41.0-53.0); Hemoglobin 14.2 g/dL (13.5-17.5); Lymphocytes # (auto) 1.4 10 ^3/uL (0.4-5.4); Lymphocytes % (auto) 30.4 % (10.0-50.0); Mean Corpuscular Hemoglobin 29.3 pg (28.0-32.0); Mean Corpuscular Hgb Conc. 34.2 g/dL (32.0-36.0); Mean Corpuscular Volume 85.7 fL (80.0-100.0); Monocytes # (auto) 0.5 10 ^3/uL (0-1.3); Neutrophils # (auto) 2.3 10 ^3/uL (1.6-8.6); Red Blood Cells 4.83 10^6/uL (4.5-5.90); Red Cell Distribution Width 13.4 % (11.8-14.3); White Blood Cell 4.6 10^3/uL (4.4-10.8)
[2023-01-31 07:48] LABS: Alanine Aminotransferase 24 U/L (7-40); Albumin 4.3 g/dL (3.2-4.8); Alkaline Phosphatase 38 U/L (46-116); Anion Gap 6.9 (5-15); Aspartate Aminotransferase 22 U/L (13-40); BUN/Creatinine Ratio 13.7 (10.0-20.0); Blood Urea Nitrogen 13 mg/dL (9-23); Calcium 9.3 mg/dL (8.5-10.1); Carbon Dioxide 26.1 mmol/L (20-30); Chloride 107 mmol/L (98-107); Glucose 109 mg/dL (74-106); Potassium 3.7 mmol/L (3.5-5.1); Sodium 140 mmol/L (136-145); Uric Acid 4.2 mg/dL (3.7-9.2)
[2023-01-31 07:50] LABS: Bilirubin, Total 0.7 mg/dL (0.2-1.0); Total Protein 6.9 g/dL (5.7-8.2)
[2023-01-31 08:13] LABS: Erythrocyte Sedimentation Rate 4 mm/hr (0-20)
== END | disposition home or self-care (01) ==
LOC: LAB 06:08
PROVIDERS: ATTEND Internal Medicine
DX: E78.5 Hyperlipidemia, unspecified (principal); R10.32 Left lower quadrant pain; N40.0 Benign prostatic hyperplasia without lower urinary tract symptoms
CPT/HCPCS: 36415; 80053; 82270; 84550; 85025; 85652

== ENCOUNTER → 2023-03-20 | Outpatient (CLI) | payer OTHER ==
[2023-03-20 07:52] LABS: Erythrocyte Sedimentation Rate 8 mm/hr (0-20)
== END | disposition home or self-care (01) ==
LOC: LAB 06:34
PROVIDERS: ATTEND Internal Medicine
DX: R22.1 Localized swelling, mass and lump, neck (principal); M54.2 Cervicalgia
CPT/HCPCS: 36415; 83036; 85652; 86141

== ENCOUNTER → 2023-04-05 | Outpatient (CLI) | payer OTHER | END | disposition home or self-care (01) | LOC: LAB 06:37 | PROVIDERS: ATTEND Internal Medicine | DX: R10.32 Left lower quadrant pain (principal) | CPT/HCPCS: 36415; 82565; 84520 ==

== ENCOUNTER → 2023-09-24 | Outpatient (CLI) | payer OTHER | END | disposition home or self-care (01) | LOC: LAB 06:14 | PROVIDERS: ATTEND Internal Medicine | DX: R19.00 Intra-abdominal and pelvic swelling, mass and lump, unspecified site (principal) | CPT/HCPCS: 36415; 82565; 84520 ==

== ENCOUNTER → 2024-03-26 | Outpatient (CLI) | payer OTHER ==
[~2024-03-26] MED LIST changes: +ZAFI10TA7 PO; -ZAFI1TAB4 PO
[2024-03-26 06:33] LABS: Urine Bacteria None Seen /hpf (None Seen)
[2024-03-26 06:56] LABS: Urine Blood Negative /uL (Negative); Urine Clarity Clear (Clear); Urine Color Light-Yellow (Yellow); Urine Protein, UAD Negative (Negative); Urine Specific Gravity 1.017 (1.001-1.035); Urine Urobilinogen Normal (Negative); Urine WBC 1 /hpf (0 - 3)
[2024-03-26 06:58] LABS: Basophils # (auto) 0 10 ^3/uL (0-0.2); Basophils % (auto) 0.9 % (0.0-2.0); Eosinophils # (auto) 0.4 10 ^3/uL (0-0.8); Eosinophils % (auto) 8.1 % (0.0-7.0); Hematocrit 45.8 % (41.0-53.0); Hemoglobin 15.5 g/dL (13.5-17.5); Lymphocytes # (auto) 1.7 10 ^3/uL (0.4-5.4); Mean Corpuscular Hemoglobin 29.1 pg (28.0-32.0); Mean Corpuscular Hgb Conc. 33.9 g/dL (32.0-36.0); Mean Corpuscular Volume 85.6 fL (80.0-100.0); Monocytes # (auto) 0.4 10 ^3/uL (0-1.3); Monocytes % (auto) 8.6 % (0.0-12.0); Neutrophils # (auto) 2.6 10 ^3/uL (1.6-8.6); Neutrophils % (auto) 50.4 % (37.0-80.0); Nucleated Red Blood Cells % 0.1 %; Platelet Count (auto) 249 10^3/uL (140-450); Red Blood Cells 5.35 10^6/uL (4.5-5.90); Red Cell Distribution Width 14.1 % (11.8-14.3); White Blood Cell 5.2 10^3/uL (4.4-10.8)
[2024-03-26 07:46] LABS: Prostate Specific Antigen 2.7 ng/mL (0.0-4.0)
[2024-03-26 07:48] LABS: Alanine Aminotransferase 26 U/L (7-40); Albumin 4.5 g/dL (3.2-4.8); Alkaline Phosphatase 50 U/L (46-116); Amylase 183 U/L (30-118); Anion Gap 8 (5-15); Aspartate Aminotransferase 24 U/L (13-40); BUN/Creatinine Ratio 16.8 (10.0-20.0); Bilirubin, Total 0.7 mg/dL (0.2-1.0); Blood Urea Nitrogen 16 mg/dL (9-23); Calcium 9.8 mg/dL (8.7-10.4); Carbon Dioxide 28 mmol/L (20-31); Chloride 105 mmol/L (98-107); Cholesterol 178 mg/dL (< 200); Glucose 100 mg/dL (74-106); HDL Cholesterol 49 mg/dL (40-59); LDL Cholesterol 122 mg/dL (< 100); Potassium 3.9 mmol/L (3.5-5.1); Sodium 141 mmol/L (136-145); Total Protein 7.6 g/dL (5.7-8.2); Triglycerides 106 mg/dL (< 150)
[2024-03-26 09:21] LABS: Lipase 135 U/L (12-53)
== END | disposition home or self-care (01) ==
LOC: LAB 06:14
PROVIDERS: ATTEND Internal Medicine
DX: Z00.00 Encounter for general adult medical examination without abnormal findings (principal); R19.00 Intra-abdominal and pelvic swelling, mass and lump, unspecified site; R73.9 Hyperglycemia, unspecified; K76.89 Other specified diseases of liver; I10 Essential (primary) hypertension; E78.5 Hyperlipidemia, unspecified
CPT/HCPCS: 36415; 80053; 80061; 81001; 82150; 82270; 82306; 82607; 83690; 84153; 84443; 85025

== ENCOUNTER → 2024-05-04 | Outpatient (CLI) | payer OTHER ==
[~2024-05-04] VITALS: Ht 182.9 cm; Wt 77.1 kg
[~2024-05-04] MED LIST changes: +GABA300T4 PO
[2024-05-04 12:46] LABS: Urine Bacteria None Seen /hpf (None Seen)
[2024-05-04 12:54] LABS: Urine Blood Negative /uL (Negative); Urine Clarity Clear (Clear); Urine Color Yellow (Yellow); Urine Protein, UAD Negative (Negative); Urine Specific Gravity 1.013 (1.001-1.035); Urine Squamous Epithelial Cell None Seen /hpf (<5); Urine Urobilinogen Normal (Negative); Urine WBC <1 /hpf (0 - 3); Urine pH 6.5 (5.0-9.0)
[2024-05-04 12:55] LABS: Basophils # (auto) 0.1 10 ^3/uL (0-0.2); Basophils % (auto) 1.1 % (0.0-2.0); Eosinophils # (auto) 0.3 10 ^3/uL (0-0.8); Eosinophils % (auto) 6.1 % (0.0-7.0); Hematocrit 42.9 % (41.0-53.0); Hemoglobin 14.5 g/dL (13.5-17.5); Lymphocytes # (auto) 1.4 10 ^3/uL (0.4-5.4); Lymphocytes % (auto) 25.2 % (10.0-50.0); Mean Corpuscular Hemoglobin 29.3 pg (28.0-32.0); Mean Corpuscular Hgb Conc. 33.8 g/dL (32.0-36.0); Mean Corpuscular Volume 86.7 fL (80.0-100.0); Monocytes # (auto) 0.5 10 ^3/uL (0-1.3); Monocytes % (auto) 8.3 % (0.0-12.0); Neutrophils # (auto) 3.4 10 ^3/uL (1.6-8.6); Neutrophils % (auto) 59.3 % (37.0-80.0); Platelet Count (auto) 260 10^3/uL (140-450); Red Blood Cells 4.95 10^6/uL (4.5-5.90); Red Cell Distribution Width 13.7 % (11.8-14.3); White Blood Cell 5.7 10^3/uL (4.4-10.8)
[2024-05-04 13:09] LABS: INR 1.02 (0.9-1.15); Partial Thromboplastin Time 26.2 SEC (24.5-34.5); Prothrombin Time 10.8 sec (9.3-11.8)
[2024-05-04 13:39] LABS: Alanine Aminotransferase 30 U/L (7-40); Alkaline Phosphatase 57 U/L (46-116); Anion Gap 6 (5-15); Aspartate Aminotransferase 25 U/L (13-40); BUN/Creatinine Ratio 13.8 (10.0-20.0); Blood Urea Nitrogen 13 mg/dL (9-23); Calcium 10.2 mg/dL (8.7-10.4); Carbon Dioxide 29 mmol/L (20-31); Chloride 105 mmol/L (98-107); Glucose 97 mg/dL (74-106); Potassium 4.1 mmol/L (3.5-5.1); Sodium 140 mmol/L (136-145)
[2024-05-04 13:40] LABS: Albumin 4.6 g/dL (3.2-4.8); Bilirubin, Total 0.4 mg/dL (0.2-1.0); Total Protein 7.4 g/dL (5.7-8.2)
== END | disposition home or self-care (01) ==
LOC: LAB 12:30 → EDSTATUS 05-06 09:00 → LAB 05-06 12:30
PROVIDERS: ATTEND Surgery
DX: R19.00 Intra-abdominal and pelvic swelling, mass and lump, unspecified site (principal); Z53.8 Procedure and treatment not carried out for other reasons; I10 Essential (primary) hypertension; I48.0 Paroxysmal atrial fibrillation; J44.9 Chronic obstructive pulmonary disease, unspecified; F41.9 Anxiety disorder, unspecified; Z79.899 Other long term (current) drug therapy; Z98.890 Other specified postprocedural states; Z82.49 Family history of ischemic heart disease and other diseases of the circulatory system; Z80.8 Family history of malignant neoplasm of other organs or systems
CPT/HCPCS: 36415; 80053; 81001; 85025; 85610; 85730; 86850; 86900; 86901

== ENCOUNTER → 2024-07-07 | Outpatient (CLI) | payer OTHER ==
[~2024-07-07] MED LIST changes: -ASPI81CH59 PO; -ZAFI10TA7 PO
[2024-07-07 07:27] LABS: Chloride 105 mmol/L (98-107); Sodium 141 mmol/L (136-145)
[2024-07-07 07:28] LABS: Anion Gap 7 (5-15); Carbon Dioxide 29 mmol/L (20-31)
[2024-07-07 07:33] LABS: BUN/Creatinine Ratio 14.6 (10.0-20.0); Blood Urea Nitrogen 14 mg/dL (9-23); Glucose 78 mg/dL (74-106)
== END | disposition home or self-care (01) ==
LOC: LAB 06:04
PROVIDERS: ATTEND Internal Medicine
DX: R19.02 Left upper quadrant abdominal swelling, mass and lump (principal)
CPT/HCPCS: 36415; 80048

== ENCOUNTER 2024-11-30 15:11 | Outpatient (CLI) | payer OTHER ==
[2024-11-30 15:30] LABS: Potassium 4.1 mmol/L (3.5-5.1); Sodium 143 mmol/L (136-145)
[2024-11-30 15:31] LABS: Anion Gap 7 (5-15); Calcium 9.8 mg/dL (8.7-10.4); Carbon Dioxide 26 mmol/L (20-31)
[2024-11-30 15:32] LABS: Chloride 110 mmol/L (98-107)
[2024-11-30 15:36] LABS: BUN/Creatinine Ratio 23.4 (10.0-20.0); Blood Urea Nitrogen 22 mg/dL (9-23); Glucose 89 mg/dL (74-106)
== END 2024-11-30 17:00 | disposition home or self-care (01) ==
LOC: LAB 15:11
DX: R19.02 Left upper quadrant abdominal swelling, mass and lump (principal)
CPT/HCPCS: 36415; 80048

== ENCOUNTER 2025-01-04 09:33 | Outpatient (CLI) | payer OTHER ==
[2025-01-04 10:41] LABS: Anion Gap 8 (5-15); Calcium 9.4 mg/dL (8.7-10.4); Carbon Dioxide 26 mmol/L (20-31); Potassium 4.4 mmol/L (3.5-5.1); Sodium 141 mmol/L (136-145)
[2025-01-04 10:47] LABS: BUN/Creatinine Ratio 21.7 (10.0-20.0); Blood Urea Nitrogen 20 mg/dL (9-23); Glucose 97 mg/dL (74-106)
[2025-01-04 10:49] LABS: Chloride 107 mmol/L (98-107)
== END 2025-01-04 17:00 | disposition home or self-care (01) ==
LOC: LAB 09:33
PROVIDERS: ATTEND Internal Medicine
DX: I10 Essential (primary) hypertension (principal); R19.00 Intra-abdominal and pelvic swelling, mass and lump, unspecified site
CPT/HCPCS: 36415; 80048